=== PATIENT | male | born 1975 | race Caucasian/White ===

== ENCOUNTER 2016-06-14 22:44 | Emergency (ER) | payer OTHER ==
[2016-06-14] MEDS ORDERED: ALPRAZolam 0.25 MG TAB As Ordered ONE (23:20)
--- NOTE | 2016-06-15 00:06 | EDDOCDS ---
Physician Documentation [facility] Name: Vikas Buchanan Age: 41 yrs Sex: Male : 1975 Arrival Date: 06/14/2016 Time: 22:44 Bed 17 Private MD: Edison Cadet [facility] Disposition: 06/14/16 23:42 Discharged to Home/Self Care. Impression: Anxiety disorder, unspecified, Acute stress reaction. - Condition is Stable. - Discharge Instructions: Panic Attacks, Generalized Anxiety Disorder. - Medication Reconciliation, Local Pharmacy Hours form. - Follow up: Edison Cadet [facility]; When: 2 - 3 days; Reason: Recheck today's complaints, Continuance of care. - Problem is an acute exacerbation. - Symptoms have improved. Historical: - Allergies: no known allergies; - Home Meds: 1. escitalopram oxalate 10 mg oral tab 2 tabs once daily (Last dose: 06/14/2016 22:00) 2. Vitamin D Unknown Oral Unknown weekly (Last dose: 06/14/2016 21:00) - PMHx: Anxiety; suicidal ideation 2014; - PSHx: fracture repair of right hand; - Social history: Smoking status: Patient uses tobacco products, heavy tobacco smoker. No barriers to communication noted, The patient speaks fluent Armenian. - Family history: Not pertinent. - : The pt / caregiver states he / she is not on anticoagulants. Home medication list is obtained from the patient. - Exposure Risk Screening:: None identified. Vital Signs: 06/14 22:51 BP 149 / 95; Pulse 83; Resp 20; Temp 97.2(TE); Pulse Ox 100% on R/A; Weight 80.29 kg / regino 177.01 lbs (R); Height 5 ft. 7 in. (170.18 cm) (R); Pain 0/10; 23:49 BP 126 / 88; Pulse 72; Resp 18; Temp 97.6(O); Pulse Ox 97% on R/A; Pain 0/10; regino 06/15 00:01 BP 124 / 84; Pulse 77; Resp 18; Temp 97.5(O); Pulse Ox 97% on R/A; mgs 06/14 22:51 Body Mass Index 27.72 (80.29 kg, 170.18 cm) regino MDM: 06/14 23:12 ALPRAZolam Tablet 0.5 mg PO once ordered. tho 06/15 00:05 Financial registration complete. hs2 Administered Medications: 06/14 23:26 Drug: ALPRAZolam 0.5 mg [alprazolam 0.25 mg tablet (2 tabs)] Route: PO; mgs Signatures: Abel Rodriguez, [facility] [facility]ALTH EPIDEMIOLOGIST Ravin Winters RN RN mgs Nelly Richards, Reg Reg hs2 MTDD
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
--- NOTE | 2016-06-17 01:06 | EDDOCDS ---
Physician Documentation [facility] Name: Vikas Buchanan Age: 41 yrs Sex: Male : 1975 Arrival Date: 06/14/2016 Time: 22:44 Bed 17 Private MD: Edison Cadet [facility] Disposition: 06/14/16 23:42 Discharged to Home/Self Care. Impression: Anxiety disorder, unspecified, Acute stress reaction. - Condition is Stable. - Discharge Instructions: Panic Attacks, Generalized Anxiety Disorder. - Medication Reconciliation, Local Pharmacy Hours form. - Follow up: Edison Cadet [facility]; When: 2 - 3 days; Reason: Recheck today's complaints, Continuance of care. - Problem is an acute exacerbation. - Symptoms have improved. Historical: - Allergies: no known allergies; - Home Meds: 1. escitalopram oxalate 10 mg oral tab 2 tabs once daily (Last dose: 06/14/2016 22:00) 2. Vitamin D Unknown Oral Unknown weekly (Last dose: 06/14/2016 21:00) - PMHx: Anxiety; suicidal ideation 2014; - PSHx: fracture repair of right hand; - Social history: Smoking status: Patient uses tobacco products, heavy tobacco smoker. No barriers to communication noted, The patient speaks fluent [place] Citizen. - Family history: Not pertinent. - : The pt / caregiver states he / she is not on anticoagulants. Home medication list is obtained from the patient. - Exposure Risk Screening:: None identified. Vital Signs: 06/14 22:51 BP 149 / 95; Pulse 83; Resp 20; Temp 97.2(TE); Pulse Ox 100% on R/A; Weight 80.29 kg / regino 177.01 lbs (R); Height 5 ft. 7 in. (170.18 cm) (R); Pain 0/10; 23:49 BP 126 / 88; Pulse 72; Resp 18; Temp 97.6(O); Pulse Ox 97% on R/A; Pain 0/10; regino 06/15 00:01 BP 124 / 84; Pulse 77; Resp 18; Temp 97.5(O); Pulse Ox 97% on R/A; mgs 06/14 22:51 Body Mass Index 27.72 (80.29 kg, 170.18 cm) regino MDM: 06/14 23:12 ALPRAZolam Tablet 0.5 mg PO once ordered. tho 06/15 00:05 Financial registration complete. hs2 01:38 T-Sheet-- Draft Copy was scanned into [employer] and attached to record. a 01:57 [facility] Payment Agreement was scanned into [employer] and attached to record. hs2 10:26 PCR was scanned into [employer] and attached to record. gb Administered Medications: 06/14 23:26 Drug: ALPRAZolam 0.5 mg [alprazolam 0.25 mg tablet (2 tabs)] Route: PO; mgs Signatures: Bruna Hanley, Reg Reg gb Abel Rodriguez, PUBLIC HEALTH DENTIST PUBLIC HEALTH DENTIST Ravin Winters,RN RN mgs Arel, Nelly Lacy, Reg Reg hs2 The chart was reviewed and I authenticate all verbal orders and agree with the evaluation and treatment provided.Attachments: 06/15 01:38 T-Sheet-- Draft Copy [facility] 01:57 [facility] Payment Agreement hs2 Chart Complete MTDD
--- NOTE | 2016-06-17 01:06 | EDDOCDS ---
Physician Documentation [facility] Name: Vikas Buchanan Age: 41 yrs Sex: Male : 1975 Arrival Date: 06/14/2016 Time: 22:44 Bed 17 Private MD: Edison Cadet [facility] Disposition: 06/14/16 23:42 Discharged to Home/Self Care. Impression: Anxiety disorder, unspecified, Acute stress reaction. - Condition is Stable. - Discharge Instructions: Panic Attacks, Generalized Anxiety Disorder. - Medication Reconciliation, Local Pharmacy Hours form. - Follow up: Edison Cadet [facility]; When: 2 - 3 days; Reason: Recheck today's complaints, Continuance of care. - Problem is an acute exacerbation. - Symptoms have improved. Historical: - Allergies: no known allergies; - Home Meds: 1. escitalopram oxalate 10 mg oral tab 2 tabs once daily (Last dose: 06/14/2016 22:00) 2. Vitamin D Unknown Oral Unknown weekly (Last dose: 06/14/2016 21:00) - PMHx: Anxiety; suicidal ideation 2014; - PSHx: fracture repair of right hand; - Social history: Smoking status: Patient uses tobacco products, heavy tobacco smoker. No barriers to communication noted, The patient speaks fluent Bruneian. - Family history: Not pertinent. - : The pt / caregiver states he / she is not on anticoagulants. Home medication list is obtained from the patient. - Exposure Risk Screening:: None identified. Vital Signs: 06/14 22:51 BP 149 / 95; Pulse 83; Resp 20; Temp 97.2(TE); Pulse Ox 100% on R/A; Weight 80.29 kg / regino 177.01 lbs (R); Height 5 ft. 7 in. (170.18 cm) (R); Pain 0/10; 23:49 BP 126 / 88; Pulse 72; Resp 18; Temp 97.6(O); Pulse Ox 97% on R/A; Pain 0/10; regino 06/15 00:01 BP 124 / 84; Pulse 77; Resp 18; Temp 97.5(O); Pulse Ox 97% on R/A; mgs 06/14 22:51 Body Mass Index 27.72 (80.29 kg, 170.18 cm) regino MDM: 06/14 23:12 ALPRAZolam Tablet 0.5 mg PO once ordered. tho 06/15 00:05 Financial registration complete. hs2 01:38 T-Sheet-- Draft Copy was scanned into [employer] and attached to record. a 01:57 [facility] Payment Agreement was scanned into [employer] and attached to record. hs2 10:26 PCR was scanned into [employer] and attached to record. gb Administered Medications: 06/14 23:26 Drug: ALPRAZolam 0.5 mg [alprazolam 0.25 mg tablet (2 tabs)] Route: PO; mgs Signatures: Bruna Hanley, Reg Reg gb Abel Rodriguez, MARKETING ROTATION ASSOCIATE MARKETING ROTATION ASSOCIATE Ravin Winters,RN RN mgs Arel, Nelly Lacy, Reg Reg hs2 The chart was reviewed and I authenticate all verbal orders and agree with the evaluation and treatment provided.Attachments: 06/15 01:38 T-Sheet-- Draft Copy [facility] 01:57 [facility] Payment Agreement hs2 Chart Complete MTDD
== END 2016-06-15 00:05 | disposition home or self-care (01) ==
LOC: M ED 22:44
DX: F43.0 Acute stress reaction (principal); F41.9 Anxiety disorder, unspecified; Z72.0 Tobacco use; Z79.899 Other long term (current) drug therapy

== ENCOUNTER → 2017-03-22 | Outpatient (CLI) | payer OTHER ==
[~2017-03-22] MED LIST: TRAZ50TA11 PO
--- NOTE | 2017-03-22 16:55 | REP ---
MAXILLOFACIAL CT WITHOUT CONTRAST: HISTORY: Chronic sinusitis. Minimal mucosal thickening is present in the maxillary sinuses. There appears to be a small defect in the alveolar ridge in the posterior left maxilla. The remaining sinuses are clear. The osteomeatal units are patent. The middle and inferior nasal turbinates are partially paradoxical. There is mild deviation of the nasal septum to the right. A large spur is present arising from the right side of the nasal septum. The spur abuts the right inferior nasal turbinate. The cribriform plate, medial langley of the orbits and the optic canals are intact. The carotid canals form a segment of the posterolateral langley of the sphenoid sinus. IMPRESSION: Sinus mucosal thickening as described above. Signed by Abran Mack MD 03/22/2017 05:03 P
== END ==
LOC: M RAD 15:18
PROVIDERS: ATTEND Otolaryngology
DX: J32.4 Chronic pansinusitis (principal)